=== PATIENT | male | born 1955 | race Caucasian/White ===

== ENCOUNTER 2019-03-02 01:43 | Inpatient (IN) | payer OTHER ==
[~2019-03-02] VITALS: Ht 175.3 cm; Wt 70.3 kg
[2019-03-02] MEDS ORDERED: ASPIRIN 81MG TABLET PO ONE (02:15)
[2019-03-02] MEDS ORDERED: NITROGLYCERIN 0.4MG TABLET SL SL PRN (02:15)
[2019-03-02 03:04] LABS: BASOPHILS % 0.8 % (0.0-2.0); EOSINOPHILS % 1.6 % (0.0-5.0); HEMATOCRIT. 44.8 % (42.0-52.0); HEMOGLOBIN. 15.7 g/dL (14.0-18.0); LYMPHOCYTES % 28.5 % (20.0-50.0); MEAN CORPUSCULAR HEMOGLOBIN 31.8 pg (28.0-32.0); MEAN CORPUSCULAR VOLUME 90.6 fL (80.0-94.0); MEAN PLATELET VOLUME 8.4 fl (7.4-10.4); MONOCYTES % 8.6 % (2.0-8.0); NEUTROPHILS % 60.5 % (40.0-76.0); PLATELET 242 x1000/uL (130-400); RED BLOOD CELL COUNT 4.94 mill/uL (4.7-6.1); RED CELL DISTRIBUTION WIDTH 13.4 % (11.6-14.6)
[2019-03-02 03:05] LABS: CHLORIDE 108 mEq/L (98-107)
[2019-03-02 03:09] LABS: ETHANOL BLOOD < 10 mg/dL
[2019-03-02 03:26] LABS: *AMPHETAMINES SCREEN URINE NEGATIVE (NEGATIVE); *BARBITURATES SCREEN URINE NEGATIVE (NEGATIVE); *BENZODIAZEPINES SCREEN URINE NEGATIVE (NEGATIVE); *COCAINE SCREEN URINE NEGATIVE (NEGATIVE); CANNABINOID URINE SCREEN PRESUMTIVE POSITIVE (NEGATIVE); METHADONE URINE SCREEN NEGATIVE (NEGATIVE); OPIATES URINE SCREEN NEGATIVE (NEGATIVE); PHENCYCLIDINE URINE SCREEN NEGATIVE (NEGATIVE)
[2019-03-02] MEDS ORDERED: IOHEXOL-350 100 ML BOTTLE ONE (03:50)
[2019-03-02] MEDS ORDERED: MORPHINE SULFATE 4 MG/ML CPJ (NOT FOR IM USE) IV ONE (05:15)
[2019-03-02 11:20] VITALS: BP 123/75
[2019-03-02 12:00] VITALS: BP 123/75
[2019-03-02] MEDS ORDERED: ACETAMINOPHEN 325MG TABLET PO PRN (12:00)
[2019-03-02] MEDS ORDERED: ONDANSETRON HCL 4MG/2ML INJ IV PRN (12:00)
[2019-03-02] MEDS ORDERED: IPRATROPIUM/ALBUTEROL 0.5-3(2.5)MG/3ML NEB HHN PRN (12:00)
[2019-03-02] MEDS ORDERED: CLONIDINE 0.1MG TABLET PO PRN (12:00)
[2019-03-02] MEDS: ENOXAPARIN 40MG/0.4ML SYR SUBCUT SCH (12:21)
[2019-03-02] MEDS: HYDROCODONE/ACETAMINOPHEN 5/325MG TABLET PO PRN ×2 (12:21→16:35)
[2019-03-02] MEDS ORDERED: REGADENOSON 0.4 MG/5 ML IV NR (13:30)
[2019-03-02] MEDS ORDERED: FAMOTIDINE 20MG/2ML VIAL IV NR (13:45)
[2019-03-02 16:00] VITALS: BP 109/69
[2019-03-02 16:14] LABS: LDL CHOLESTEROL 92 mg/dL (5-100)
[2019-03-02 16:16] LABS: CREATINE KINASE 299 IU/L (39-308); HDL CHOLESTEROL 53 mg/dL (40-59)
[2019-03-02 20:00] VITALS: BP 101/65
[2019-03-02] MEDS: METOPROLOL TARTRATE 25MG TABLET PO SCH (20:41)
[2019-03-02] MEDS: FAMOTIDINE 20MG/2ML VIAL IV SCH (20:48)
[2019-03-03] VITALS: BP 108/73
[2019-03-03] MEDS: HYDROCODONE/ACETAMINOPHEN 5/325MG TABLET PO PRN (00:24)
[2019-03-03 00:53] LABS: CREATINE KINASE 236 IU/L (39-308)
[2019-03-03 04:00] VITALS: BP 106/68
[2019-03-03 06:06] LABS: BASOPHILS % 0.8 % (0.0-2.0); CHLORIDE 106 mEq/L (98-107); EOSINOPHILS % 3.9 % (0.0-5.0); HEMATOCRIT. 40.6 % (42.0-52.0); MEAN CORPUSCULAR HEMOGLOBIN 31.6 pg (28.0-32.0); MEAN CORPUSCULAR VOLUME 91.3 fL (80.0-94.0); MEAN PLATELET VOLUME 8.7 fl (7.4-10.4); NEUTROPHILS % 47.3 % (40.0-76.0); PLATELET 203 x1000/uL (130-400); RED BLOOD CELL COUNT 4.45 mill/uL (4.7-6.1); RED CELL DISTRIBUTION WIDTH 13.3 % (11.6-14.6)
[2019-03-03 06:14] LABS: LDL CHOLESTEROL 94 mg/dL (5-100)
[2019-03-03 06:16] LABS: HDL CHOLESTEROL 52 mg/dL (40-59); T4 FREE 1.25 ng/dL (0.76-1.46)
[2019-03-03 06:24] LABS: HEPATITIS B SURFACE ANTIGEN NEGATIVE
[2019-03-03 06:53] LABS: HEPATITIS A AB IGM NEGATIVE (NEGATIVE)
[2019-03-03 08:00] VITALS: BP 118/73
[2019-03-03] MEDS: METOPROLOL TARTRATE 25MG TABLET PO SCH (09:00)
[2019-03-03] MEDS ORDERED: ASPIRIN 81MG EC TABLET PO SCH (09:00)
[2019-03-03] MEDS: FAMOTIDINE 20MG/2ML VIAL IV SCH (09:01)
[2019-03-03] MEDS ORDERED: REGADENOSON 0.4 MG/5 ML IV ONE (10:17)
[2019-03-03 12:00] VITALS: BP 180/87
[2019-03-03] MEDS: ENOXAPARIN 40MG/0.4ML SYR SUBCUT SCH (12:00)
[2019-03-03] MEDS ORDERED: ASPI-1393 MT (12:05)
[2019-03-03] MEDS ORDERED: FAMO-135 MT (12:05)
[2019-03-03] MEDS ORDERED: METO25TA6 MT (12:05)
== END 2019-03-03 14:10 | disposition home or self-care (01) | DRG 308 ==
LOC: ER 01:43 → 8WST 05:47 → EDBEDREQ 05:51 → EDBEDREQTM 05:51 → ENRESERV 10:22
PROVIDERS: ADMIT Internal Medicine; ATTEND Internal Medicine
DX: R00.2 Palpitations (principal); J80 Acute respiratory distress syndrome; E86.0 Dehydration; F12.90 Cannabis use, unspecified, uncomplicated; I10 Essential (primary) hypertension; K21.9 Gastro-esophageal reflux disease without esophagitis; K70.30 Alcoholic cirrhosis of liver without ascites; F41.9 Anxiety disorder, unspecified; Z60.2 Problems related to living alone; K57.90 Diverticulosis of intestine, part unspecified, without perforation or abscess without bleeding; R07.89 Other chest pain; Z87.891 Personal history of nicotine dependence; Z79.899 Other long term (current) drug therapy; Z79.82 Long term (current) use of aspirin
CPT/HCPCS: 36415; 71045; 71275; 74174; 78452; 80061; 80305; 80320; 82550; 83735; 83880; 84439; 84443; 84484; 86705; 86709; 86803; 87340; 93005; 93017; 93306; 99285; A9500; J1650; J2270; J2785; J3490; Q9967; G0480